=== PATIENT | female | born 1980 | race Hispanic/Latino ===

== ENCOUNTER 2021-12-17 20:36 | Inpatient (IN) | payer MEDICAID, OTHER ==
[~2021-12-17] VITALS: Ht 154.9 cm; Wt 79.4 kg
[2021-12-17] MEDS ORDERED: 0.9%NACL 1000ML 1,000 ML IV ONE (21:30)
[2021-12-17] MEDS ORDERED: KETOROLAC 30MG VIAL (30MG/ML) IV ONE (21:30)
[2021-12-17] MEDS ORDERED: ACETAMINOPHEN 500 MG TABLET PO ONE (21:30)
[2021-12-17] MEDS ORDERED: ONDANSETRON 4MG INJ IVP ONE (21:30)
[2021-12-17 21:32] LABS: APPEARANCE,URINE Clear (CLEAR); BILIRUBIN,URINE Negative (NEGATIVE); COLOR,URINE Yellow (YELLOW); GLUCOSE, URINE (UA) Negative (NEGATIVE); KETONES,URINE Negative (NEGATIVE); LEUKOCYTE ESTERASE ,URINE Trace (NEGATIVE); NITRATE,URINE Negative (NEGATIVE); OCCULT BLOOD,URINE Trace (NEGATIVE); PH,URINE 7.5 (5.0-8.0); PROTEIN,URINE Negative (NEGATIVE)
[2021-12-17 21:42] LABS: HCG,QUAL RESULT NEGATIVE (NEGATIVE)
[2021-12-17 21:47] LABS: BACTERIA,URINE Few /HPF (None Seen); SQUAMOUS EPITHELIAL CELL,UR Rare /HPF (0-2)
[2021-12-17 21:51] LABS: BASOPHILS % (AUTO) 0.2 % (0.0-5.0); HEMATOCRIT 40.4 % (36-48); LYMPHOCYTES % (AUTO) 10.3 % (21.0-51.0); MEAN CORPUSCULAR HEMOGLOBIN 30.6 pg (27.0-33.0); MEAN CORPUSCULAR HGB CONC 34.7 g/dL (32.0-36.0); MEAN CORPUSCULAR VOLUME 88.4 fL (79-99); MONOCYTES % (AUTO) 9.7 % (3.0-13.0); NEUTROPHILS % (AUTO) 79.5 % (40.0-77.0); PLATELET COUNT (AUTO) 217 K/uL (130-400); RED BLOOD CELL COUNT(AUTO) 4.57 MIL/uL (4.00-5.50); RED CELL DISTRIBUTION WIDTH 12.4 % (11.0-15.5); WHITE BLOOD COUNT (AUTO) 17.3 K/uL (4.8-10.8)
[2021-12-17 22:05] LABS: ALBUMIN 4.1 g/dL (3.5-5.0); BILIRUBIN,TOTAL 0.7 mg/dL (0.2-1.0); CREATININE 0.9 mg/dL (0.5-1.5); TOTAL PROTEIN, SERUM 8.3 g/dL (6.0-8.3)
[2021-12-17] MEDS ORDERED: CEFTRIAXONE 2GM VIAL IVP ONE (23:00)
[2021-12-17] MEDS ORDERED: 0.9%NACL 50ML 50 ML IV ONE (23:18)
[2021-12-17 23:46] LABS: GLUCOSE, CSF 50 mg/dL (40-70)
[2021-12-18 00:04] LABS: LYMPHOCYTES1,CSF 10 %; MONOCYTES1,CSF 16 %; NEUTROPHILS1,CSF 74 %; TOTAL PROTEIN, CSF 248 mg/dL (15-45)
[2021-12-18 00:05] LABS: APPEARANCE,CSF BLOODY (CLEAR); CSF TUBE NUMBER TUBE NO.1
[2021-12-18 00:06] LABS: COLOR,CSF RED (COLORLESS); WHITE BLOOD CELL1,CSF 850 CMM (0-5)
[2021-12-18 00:07] LABS: RED BLOOD CELL1,CSF 22500 CMM (0-0)
[2021-12-18] MEDS ORDERED: LIDOCAINE HCL-MPF 1% 2ML VIAL IV PRN (00:30)
[2021-12-18] MEDS ORDERED: KCL 20 MEQ ERTAB PO PRN (00:30)
[2021-12-18] MEDS ORDERED: ACETAMINOPHEN 325 MG TAB PO PRN ×2 (00:30→05:00)
[2021-12-18] MEDS ORDERED: VANCOMYCIN 1G VIAL IVPB ONE (00:30)
[2021-12-18] MEDS ORDERED: POTASSIUM CHLORIDE 20MEQ/100ML 100 ML IV PRN (00:30)
[2021-12-18] MEDS ORDERED: ACETAMINOPHEN WITH CODEINE 1 TAB TAB PO PRN (00:30)
[2021-12-18] MEDS ORDERED: DEXAMETHASONE SOD PHOSPHATE 4 MG/ML 1ML VIAL IVP ONE (00:30)
[2021-12-18] MEDS ORDERED: MAG/ALUM/SIMETH 30 ML UDCUP PO PRN ×2 (00:30→05:00)
[2021-12-18] MEDS ORDERED: ONDANSETRON 4MG INJ IV PRN ×2 (00:30→05:00)
[2021-12-18] MEDS ORDERED: VANCOMYCIN PROTOCOL PER PHARMACY IV PRN ×2 (00:30→05:00)
[2021-12-18] MEDS ORDERED: LACTULOSE 20 GM/30 ML UDCUP PO PRN ×2 (00:30→05:00)
[2021-12-18] MEDS ORDERED: GUAIFENESIN-DM 200/20 MG 10 ML PO PRN ×2 (00:30→05:00)
[2021-12-18] MEDS ORDERED: POTASSIUM CHLORIDE 10% ELIXIR 20 MEQ/15 ML UDCUP PO PRN (00:30)
[2021-12-18] MEDS ORDERED: DIPHENHYDRAMINE HCL 25 MG CAPSULE PO PRN ×2 (00:30→05:00)
[2021-12-18] MEDS ORDERED: CEFTRIAXONE 1G VIAL IV SCH ×2 (00:30→05:00)
[2021-12-18] MEDS ORDERED: MORPHINE 4 MG SYG IV PRN ×2 (00:30→05:00)
[2021-12-18] MEDS ORDERED: NITROGLYCERIN 0.4 MG SL TAB SL PRN ×2 (00:30→05:00)
[2021-12-18] MEDS ORDERED: VANCOMYCIN 750MG VIAL ONE (00:35)
[2021-12-18] MEDS ORDERED: IOHEXOL-350 75 ML VIAL IV ONE (03:25)
[2021-12-18 05:22] LABS: APPEARANCE2,CSF BLOODY (CLEAR); COLOR2,CSF RED (COLORLESS); CSF 2ND TUBE NUMBER 4
[2021-12-18 05:27] LABS: CSF LYMPHOCYTES2 10 %; MONOCYTES2,CSF 24 %; NEUTROPHILS2,CSF 66 %
[2021-12-18] MEDS: MORPHINE 2 MG SYG IV PRN ×2 (06:50→12:00)
[2021-12-18] MEDS ORDERED: CEFTRIAXONE 2GM VIAL IVP SCH (09:00)
[2021-12-18] MEDS ORDERED: VANCOMYCIN 1G/250ML KIT 250 ML IV SCH (09:00)
[2021-12-18] MEDS ORDERED: FAMOTIDINE 20MG VIAL IV SCH ×2 (09:00)
[2021-12-18] MEDS ORDERED: PANTOPRAZOLE 40 MG/VIAL IVP SCH (09:00)
[2021-12-18] MEDS ORDERED: GADOTERATE MEGLUMINE 10 MMOL/20 ML VIAL IV ONE (10:02)
[2021-12-18 11:22] LABS: HEMATOCRIT 38.5 % (36-48); MEAN CORPUSCULAR HEMOGLOBIN 31.4 pg (27.0-33.0); MEAN CORPUSCULAR HGB CONC 34.5 g/dL (32.0-36.0); MEAN CORPUSCULAR VOLUME 90.8 fL (79-99); RED BLOOD CELL COUNT(AUTO) 4.24 MIL/uL (4.00-5.50); RED CELL DISTRIBUTION WIDTH 12.6 % (11.0-15.5); WHITE BLOOD COUNT (AUTO) 13.5 K/uL (4.8-10.8)
[2021-12-18 11:35] LABS: CREATININE 0.8 mg/dL (0.5-1.5); INR 1.02 (0.85-1.15); POTASSIUM 3.5 mmol/L (3.5-5.1); PROTHROMBIN TIME 11.1 SEC (9.6-11.6)
[2021-12-18 11:36] LABS: PARTIAL THROMBOPLASTIN TIME 26.4 SEC (26.3-35.5)
[2021-12-18 11:37] LABS: ALBUMIN 3.4 g/dL (3.5-5.0); BILIRUBIN,TOTAL 0.5 mg/dL (0.2-1.0); MAGNESIUM 2.2 mg/dL (1.80-2.40); TOTAL PROTEIN, SERUM 7.4 g/dL (6.0-8.3)
[2021-12-18] MEDS ORDERED: ACETAMINOPHEN 650 MG/20.3 ML UDCUP ONE (17:22)
[2021-12-18] MEDS ORDERED: ACETAMINOPHEN 650 MG/20.3 ML UDCUP PEG PRN (17:30)
[2021-12-18 17:37] VITALS: BP 119/69
== END 2021-12-18 19:00 | disposition short-term general hospital (02) | DRG 64 ==
LOC: EDH 20:36 → EDHIP 20:37 → 3AH 12-18 03:44 → EDHIP 12-18 04:43
PROVIDERS: ADMIT Hospitalist; ATTEND Hospitalist
DX: I61.5 Nontraumatic intracerebral hemorrhage, intraventricular (principal); G00.9 Bacterial meningitis, unspecified; G44.86 Cervicogenic headache; D72.829 Elevated white blood cell count, unspecified; E66.9 Obesity, unspecified; E87.6 Hypokalemia; Z20.822 Contact with and (suspected) exposure to COVID-19; F19.90 Other psychoactive substance use, unspecified, uncomplicated; M79.604 Pain in right leg; M79.605 Pain in left leg; Z97.5 Presence of (intrauterine) contraceptive device; Z98.891 History of uterine scar from previous surgery; Z68.33 Body mass index [BMI] 33.0-33.9, adult
CPT/HCPCS: 36415; 70450; 70496; 70498; 70553; 80053; 81001; 81025; 82945; 83605; 83735; 84145; 84157; 85025; 85027; 85610; 85651; 85730; 86000; 87040; 87071; 87088; 87147; 87205; 87252; 87635; 87804; 89051; 99291; C9113; C9803; G0378; J0696; J1100; J1885; J2405; J3370; J3480; J3490; J7030; Q9967

== ENCOUNTER 2023-06-17 03:12 | Emergency (ER) | payer MEDICAID ==
[~2023-06-17] VITALS: Ht 154.9 cm; Wt 79.4 kg
[2023-06-17 06:28] LABS: BASOPHILS # (AUTO) 0.03 K/uL (0.00-0.20); BASOPHILS % (AUTO) 0.3 % (0.0-5.0); EOSINOPHILS # (AUTO) 0.12 K/uL (0.00-0.70); EOSINOPHILS % (AUTO) 1.1 % (0.0-8.0); HEMATOCRIT 44.1 % (36-48); IMMATURE GRANULOCYTE ABSOLUTE 0.05 K/uL (0-1); LYMPHOCYTES # (AUTO) 2.2 K/uL (1.0-4.8); LYMPHOCYTES % (AUTO) 20.9 % (21.0-51.0); MEAN CORPUSCULAR HEMOGLOBIN 31.5 pg (27.0-33.0); MEAN CORPUSCULAR HGB CONC 34.9 g/dL (32.0-36.0); MEAN CORPUSCULAR VOLUME 90.2 fL (79-99); MONOCYTES # (AUTO) 1.1 K/uL (0.1-1.0); MONOCYTES % (AUTO) 10.5 % (3.0-13.0); NEUTROPHILS % (AUTO) 66.7 % (40.0-77.0); PLATELET COUNT (AUTO) 214 K/uL (130-400); RED BLOOD CELL COUNT(AUTO) 4.89 MIL/uL (4.00-5.50); RED CELL DISTRIBUTION WIDTH 12.7 % (11.0-15.5); WHITE BLOOD COUNT (AUTO) 10.6 K/uL (4.8-10.8)
[2023-06-17] MEDS ORDERED: MORPHINE 2 MG SYG IVP ONE (06:30)
[2023-06-17] MEDS ORDERED: 0.9%NACL 1000ML 1,000 ML IV ONE (06:30)
[2023-06-17] MEDS ORDERED: ONDANSETRON 4MG INJ IVP ONE (06:30)
[2023-06-17 06:40] LABS: ALBUMIN 3.8 g/dL (3.5-5.0); BILIRUBIN,TOTAL 0.8 mg/dL (0.2-1.0); CREATININE 1.5 mg/dL (0.5-1.5); POTASSIUM 3.6 mmol/L (3.5-5.1); TOTAL PROTEIN, SERUM 8.1 g/dL (6.0-8.3)
[2023-06-17 08:14] LABS: ADD UA MICROSCOPIC NO; APPEARANCE,URINE CLEAR (CLEAR); BILIRUBIN,URINE NEGATIVE (NEGATIVE); COLOR,URINE LIGHT-YELLOW (YELLOW); GLUCOSE, URINE (UA) NEGATIVE (NEGATIVE); KETONES,URINE NEGATIVE (NEGATIVE); LEUKOCYTE ESTERASE ,URINE NEGATIVE Leu/uL (NEGATIVE); NITRATE,URINE NEGATIVE (NEGATIVE); OCCULT BLOOD,URINE NEGATIVE (NEGATIVE); PH,URINE 5.5 (5.0-8.0); PROTEIN,URINE NEGATIVE (NEGATIVE); UROBILINOGEN,URINE 0.2 mg/dL (0.2-1.0)
[2023-06-17 09:46] VITALS: RESP 18; O2SAT 97
[2023-06-17 10:46] VITALS: BP 107/73; PULSE 88
== END 2023-06-17 11:05 | disposition home or self-care (01) ==
LOC: EDH 03:12
DX: K76.0 Fatty (change of) liver, not elsewhere classified (principal); R10.84 Generalized abdominal pain; Z98.890 Other specified postprocedural states; R10.30 Lower abdominal pain, unspecified
CPT/HCPCS: 99284; 96374; 96361; 96375; 80053; 84703; 83690; 85025; 81003; 36415; J2270; J7030; J2405